=== PATIENT | male | born 1940 | race Caucasian/White ===

== ENCOUNTER → 2017-07-02 | Day surgery (SDC) | payer BC ==
[~2017-07-02] VITALS: Ht 170.2 cm; Wt 79.5 kg
[~2017-07-02] MED LIST: AMLO10TA2 PO; AMPICILLIN/SULBAC 3 GM/NS 100 ML IV PRN; AMPICILLIN/SULBAC 3 GM/NS 100 ML IV SCH; CHLORHEXIDINE GLUCONATE 2 % 1 PACK (2 CLOTHS) TOPICAL PRN; FAMOTIDINE 20 MG/2 ML VIAL ONE; LACTATED RINGER'S 1000 ML IV PRN; METOPROLOL TARTRATE 25 MG TAB PO PRN; METR1GEL TOPICAL; MIDAZOLAM HCL 2 MG/2 ML VIAL ONE; MULT-65 PO; POVIDONE IODINE 5% (ANTISEPSIS KIT) 4 APPLICATIONS EACH NARE PRN; SIMV40TA PO; SODIUM CHLORID 0.9% 500 ML IV PRN
--- NOTE | 2017-07-02 11:37 | EKG ---
Date Performed: 07/02/2017 Time Performed: 10:39:43 PTAGE: 76 years EKG: Sinus rhythm NORMAL ECG NO PREVIOUS TRACING DOCTOR: Mynor Villatoro Interpretating Date/Time 07/02/2017 11:36:11
[2017-07-02 14:10] VITALS: BP 139/74; PULSE 63; RESP 16; TEMP 98.6; O2SAT 97
--- NOTE | 2017-07-24 11:56 | MP ---
cc: Neil Navas MD DATE OF OPERATION: 07/02/2017 SURGEON: Neil Navas MD. PREOPERATIVE DIAGNOSIS: Lesion of right vocal cord. POSTOPERATIVE DIAGNOSIS: Lesion of right vocal cord. OPERATION PERFORMED: Direct laryngoscopy with biopsy. INDICATIONS FOR PROCEDURE: The indications are documented in the history and physical. DESCRIPTION OF OPERATION: The patient was taken to OR #2, placed in the supine position. Following induction of general anesthesia by intravenous route, a shoulder roll, a Jabier head drape and a dental guard were put in place. Using the Dedo laryngoscope, the hypopharynx and larynx were brought into view. Lesion of the right cord was immediately identified and a generous biopsy was obtained from this site. The scope was then removed and the procedure was terminated. The patient was then reversed from anesthesia and taken to recovery in good condition. There were no complications. Blood loss 10 mL. Neil Navas MD JMYogesh/MICHAEL , 11:17 AM , 11:55 AM
== END | disposition home or self-care (01) ==
LOC: PHSDC 08:45
PROVIDERS: ATTEND Otolaryngology
DX: J38.2 Nodules of vocal cords (principal); I10 Essential (primary) hypertension
CPT/HCPCS: 00320; 31535; 88305; 93005; J0295; J2250; J3010; J7120